=== PATIENT | male | born 1975 | race African-American/Black ===

== ENCOUNTER 2017-07-24 03:50 | Emergency (ER) | payer OTHER ==
[~2017-07-24] VITALS: Ht 180.3 cm; Wt 75.0 kg
[~2017-07-24 03:50] MED LIST: METH500T3 PO; NAPR550 PO; Z.0.NO CURRENT MEDS
[2017-07-24 03:57] VITALS: BP 180/95; PULSE 83; RESP 20; TEMP 98; O2SAT 98
[2017-07-24] MEDS ORDERED: NALOXONE HCL 0.4 MG/ML AMP ONE (04:08)
[2017-07-24] MEDS ORDERED: NALOXONE HCL 2 MG/2 ML VIAL ONE (04:09)
[2017-07-24 04:12] VITALS: O2SAT 100
[2017-07-24] MEDS ORDERED: NALOXONE HCL 2 MG/2 ML VIAL IVP ONE (04:15)
[2017-07-24] MEDS ORDERED: SODIUM CHLORIDE 0.9% FLUSH 10 ML FLUSH IVF PRN (04:15)
[2017-07-24 04:26] LABS: BASOPHIL # 0.1 TH/MM3 (0-0.2); EOSINOPHIL # 0.1 TH/MM3 (0-0.4); EOSINOPHIL % 2.8 % (0.0-4.0); HEMATOCRIT 36.3 % (39.0-51.0); HEMO FLAGS DIFF FINAL; LYMPH % 31.1 % (9.0-44.0); LYMPHOCYTE # 1.7 TH/MM3 (1.0-4.8); MEAN CELL VOLUME 88.3 FL (80.0-100.0); MONO % 8.4 % (0.0-8.0); NEUT % 56.7 % (16.0-70.0); PLATELET COUNT 248 TH/MM3 (150-450); RED BLOOD COUNT 4.11 MIL/MM3 (4.50-5.90); RED CELL DISTRIBUTION WIDTH 13.4 % (11.6-17.2); WHITE BLOOD COUNT 5.4 TH/MM3 (4.0-11.0)
--- NOTE | 2017-07-24 04:36 | RADRPT ---
EXAM DATE/TIME: 07/24/2017 04:21 [facility] COMPARISON: No previous studies available for comparison. INDICATIONS : Chest pain and uncontrolled shivering MEDICAL HISTORY : None. SURGICAL HISTORY : None. ENCOUNTER: Initial ACUITY: 1 day PAIN SCORE: 7/10 LOCATION: Bilateral chest FINDINGS: A single view of the chest demonstrates the lungs to be symmetrically aerated without evidence of mas s, infiltrate or effusion. The cardiomediastinal contours are unremarkable. Osseous structures are intact. CONCLUSION: Normal examination. Piyush Thompson MD on July 24, 2017 at 4:34 Board Certified Radiologist. This report was verified electronically.
--- NOTE | 2017-07-24 04:37 | RADRPT ---
EXAM DATE/TIME: 07/24/2017 04:18 [facility] COMPARISON: No previous studies available for comparison. INDICATIONS : Abdominal and upper chest pain MEDICAL HISTORY : None. SURGICAL HISTORY : None. ENCOUNTER: Initial ACUITY: 1 day PAIN SCORE: 7/10 LOCATION: Bilateral Abdomen FINDINGS: Supine and upright views of the abdomen were performed. The abdominal bowel gas pattern is normal. No air fluid levels are seen. No abnormal masses, calcifications, or organomegaly is seen. The visu alized lower lungs are clear. No evidence of free intraperitoneal gas. The osseous structures are u nremarkable. CONCLUSION: Normal examination. Piyush Thompson MD on July 24, 2017 at 4:35 Board Certified Radiologist. This report was verified electronically.
--- NOTE | 2017-07-24 04:38 | PD ---
HPI Chief Complaint: Alcohol/Drug Intoxication Time Seen by Provider: 04:11 Travel History International Travel<30 days: No Contact w/Intl Traveler<30days: No Traveled to known affect area: No History of Present Illness HPI 42-year-old male with history of substance abuse and alcohol use, presents to the ER today brought in by PD because he states that he is having chest pains. It was suspect that he may have ingested some substances. He currently denies any ingestions. He is fairly lethargic although arousable. Modifying Factors: None Associated Signs & Symptoms: Chest pains, possible intoxication, lethargy Risk Factors: History of substance use PFSH Past Medical History Medical History: Denies Significant Hx Influenza Vaccination: Yes Past Surgical History Surgical History: No Previous Surgery Social History Alcohol Use: No Tobacco Use: No Substance Use: No Allergies-Medications (Allergen,Severity, Reaction): Coded Allergies: No Known Allergies (Unverified , 08/31/13) Reported Meds & Prescriptions Reported Meds & Active Scripts Active No Active Prescriptions or Reported Medications Review of Systems ROS Limitations: Altered Mental Status Physical Exam Narrative GENERAL: Well-developed middle age -[place] male patient currently in mild distress, arousable, but lethargic. SKIN: Focused skin assessment warm/dry. HEAD: Atraumatic. Normocephalic. EYES: Pupils are pinpoint, equal and round, poorly reactive to light. No scleral icterus. No injection or drainage. ENT: No nasal bleeding or discharge. Mucous membranes pink and moist. NECK: Trachea midline. No JVD. CARDIOVASCULAR: Regular rate and rhythm. No murmur appreciated. RESPIRATORY: No accessory muscle use. Clear to auscultation. Breath sounds equal bilaterally. GASTROINTESTINAL: Abdomen soft, non-tender, nondistended. Hepatic and splenic margins not palpable. MUSCULOSKELETAL: No obvious deformities. No clubbing. No cyanosis. No edema. NEUROLOGICAL: Awake and alert. No obvious cranial nerve deficits. Motor grossly within normal limits. Normal speech. PSYCHIATRIC: Appropriate mood and affect; insight and judgment normal. Data Data Last Documented VS Vital Signs Date Time Temp Pulse Resp B/P (MAP) Pulse Ox O2 Delivery O2 Flow Rate FiO2 07/24/17 05:36 75 14 154/86 (108) 100 Room Air 07/24/17 03:57 98.0 Orders Orders Electrocardiogram (07/24/17 04:07) Complete Blood Count With Diff (07/24/17 04:07) Comprehensive Metabolic Panel (07/24/17 04:07) Iv Access Insert/Monitor (07/24/17 04:07) Ecg Monitoring (07/24/17 04:07) Oximetry (07/24/17 04:07) Naloxone Inj (Narcan Inj) (07/24/17 04:15) Sodium Chloride 0.9% Flush (Ns Flush) (07/24/17 04:15) Drug Screen, Random Urine (07/24/17 04:07) Alcohol (Ethanol) (07/24/17 04:07) Salicylates (Aspirin) (07/24/17 04:07) Tylenol (Acetaminophen) (07/24/17 04:07) Naloxone Inj (Narcan Inj) (07/24/17 04:08) Naloxone Inj (Narcan Inj) (07/24/17 04:09) Chest, Single Ap (07/24/17 04:11) Abdomen, Flat & Upright (07/24/17 04:11) Creatine Kinase (Cpk) (07/24/17 04:15) Troponin I (07/24/17 04:15) CKMB (07/24/17 04:15) CKMB% (07/24/17 04:15) Ckmb (Isoenzyme) Profile (07/24/17 05:50) Troponin I (07/24/17 05:50) Labs Laboratory Tests Test 07/24/17 04:15 07/24/17 04:40 07/24/17 06:00 White Blood Count 5.4 TH/MM3 Red Blood Count 4.11 MIL/MM3 Hemoglobin 12.3 GM/DL Hematocrit 36.3 % Mean Corpuscular Volume 88.3 FL Mean Corpuscular Hemoglobin 30.0 PG Mean Corpuscular Hemoglobin Concent 34.0 % Red Cell Distribution Width 13.4 % Platelet Count 248 TH/MM3 Mean Platelet Volume 8.4 FL Neutrophils (%) (Auto) 56.7 % Lymphocytes (%) (Auto) 31.1 % Monocytes (%) (Auto) 8.4 % Eosinophils (%) (Auto) 2.8 % Basophils (%) (Auto) 1.0 % Neutrophils # (Auto) 3.0 TH/MM3 Lymphocytes # (Auto) 1.7 TH/MM3 Monocytes # (Auto) 0.4 TH/MM3 Eosinophils # (Auto) 0.1 TH/MM3 Basophils # (Auto) 0.1 TH/MM3 CBC Comment DIFF FINAL Differential Comment Blood Urea Nitrogen 16 MG/DL Creatinine 1.24 MG/DL Random Glucose 119 MG/DL Total Protein 6.5 GM/DL Albumin 3.3 GM/DL Calcium Level 7.3 MG/DL Alkaline Phosphatase 52 U/L Aspartate Amino Transf (AST/SGOT) 28 U/L Alanine Aminotransferase (ALT/SGPT) 17 U/L Total Bilirubin 0.6 MG/DL Sodium Level 137 MEQ/L Potassium Level 4.3 MEQ/L Chloride Level 105 MEQ/L Carbon Dioxide Level 22.0 MEQ/L Anion Gap 10 MEQ/L Estimat Glomerular Filtration Rate 77 ML/MIN Protein Corrected Calcium 7.6 MG/DL Total Creatine Kinase 433 U/L 424 U/L Creatine Kinase MB 3.6 NG/ML Creatine Kinase MB % 0.8 % Troponin I LESS THAN 0.02 NG/ML LESS THAN 0.02 NG/ML Salicylates Level LESS THAN 1.7 MG/DL Acetaminophen Level LESS THAN 2.0 MCG/ML Ethyl Alcohol Level 3 MG/DL Urine Opiates Screen NEG Urine Barbiturates Screen NEG Urine Amphetamines Screen POS Urine Benzodiazepines Screen NEG Urine Cocaine Screen NEG Urine Cannabinoids Screen POS MDM Medical Decision Making Medical Screen Exam Complete: Yes Emergency Medical Condition: Yes Medical Record Reviewed: Yes Interpretation(s) EKG shows NSR, no ST elevation or depression, and no arrhythmias. No significant T-wave inversions. Laboratory Tests Test 07/24/17 04:15 07/24/17 04:40 Red Blood Count 4.11 MIL/MM3 (4.50-5.90) Hemoglobin 12.3 GM/DL (13.0-17.0) Hematocrit 36.3 % (39.0-51.0) Monocytes (%) (Auto) 8.4 % (0.0-8.0) Random Glucose 119 MG/DL (74-106) Albumin 3.3 GM/DL (3.4-5.0) Calcium Level 7.3 MG/DL (8.5-10.1) Estimat Glomerular Filtration Rate 77 ML/MIN (>89) Protein Corrected Calcium 7.6 MG/DL (8.5-10.1) Total Creatine Kinase 433 U/L (39-308) Troponin I LESS THAN 0.02 NG/ML Salicylates Level LESS THAN 1.7 MG/DL Acetaminophen Level LESS THAN 2.0 MCG/ML Urine Amphetamines Screen POS (NEG) Urine Cannabinoids Screen POS (NEG) Differential Diagnosis Chest pains, possible overdose, lethargy: Evaluate for coingestions versus ACS versus dysrhythmias versus metabolic issues Narrative Course Patient was initially lethargic but in the ER, became more arousable. His EKG did not show any significant dysrhythmias or ST changes. Initial set of cardiac enzyme was unremarkable. However, considering his initial picture, my plan was to admit the patient as an observation. Hospitalist was called, case was discussed with Dr. Díaz, who states that she does not feel that the patient needs to be admitted, could be cleared after second set of cardiac enzymes. Second set of cardiac enzymes are negative. At this point, my plan would be to release the patient with follow-up to primary care physician. Return for new issues as needed. Patient is released to PD custody. Diagnosis Primary Impression: Chest pain Additional Impression: Substance abuse Scripts No Active Prescriptions or Reported Meds Disposition: [address] LAW ENFORCEMNT Condition: Stable Rosemary Mcnulty MD Jul 24, 2017 04:38
[2017-07-24 04:55] LABS: ACETAMINOPHEN LESS THAN 2.0 MCG/ML (10.0-30.0); ALKALINE PHOSPHATASE 52 U/L (45-117); ALT (GPT) 17 U/L (12-78); ANION GAP 10 MEQ/L (5-15); AST (GOT) 28 U/L (15-37); BLOOD UREA NITROGEN 16 MG/DL (7-18); CALCIUM-PROTEIN CORRECTED 7.6 MG/DL (8.5-10.1); CHLORIDE 105 MEQ/L (98-107); CREATINE KINASE 433 U/L (39-308); GLOMERULAR FILTRATION RATE 77 ML/MIN (>89); SODIUM (NA) 137 MEQ/L (136-145); TOTAL BILIRUBIN ADULT 0.6 MG/DL (0.2-1.0)
[2017-07-24 04:56] LABS: ALCOHOL 3 MG/DL (0-5); POTASSIUM 4.3 MEQ/L (3.5-5.1)
[2017-07-24 05:30] LABS: CKMB 3.6 NG/ML (0.5-3.6)
[2017-07-24 05:36] VITALS: BP 154/86; PULSE 75; RESP 14; O2SAT 100
[2017-07-24 07:13] LABS: CREATINE KINASE 424 U/L (39-308)
--- NOTE | 2017-07-24 11:50 | EKG ---
Date Performed: 07/24/2017 Time Performed: 04:02:09 PTAGE: 42 years EKG: Sinus rhythm POSSIBLE RIGHT VENTRICULAR CONDUCTION DELAY BORDERLINE ECG NO PREVIOUS TRACING DOCTOR: Shelley Velez Interpretating Date/Time 07/24/2017 11:49:40
== END 2017-07-24 08:00 ==
LOC: NEPC 03:50
DX: Z02.89 Encounter for other administrative examinations (principal); R41.82 Altered mental status, unspecified; R07.9 Chest pain, unspecified; F19.10 Other psychoactive substance abuse, uncomplicated
CPT/HCPCS: 71010; 74020; 80053; 80307; 82550; 82552; 84484; 85025; 93005; 99285; J2310